=== PATIENT | female | born 1965 | race Hispanic/Latino ===

== ENCOUNTER → 2017-10-18 | Outpatient (CLI) | payer OTHER ==
--- NOTE | 2017-10-18 15:43 | Diagnostic Imaging Report ---
#[id number] - [id number] #BILATERAL FIRST EVER DIGITAL SCREENING MAMMOGRAM WITH CAD: 10/18/2017 CLINICAL: Routine screening. Baseline examination. No prior exams were available for comparison. Current study contains 8 films. There are scattered fibroglandular elements in both breasts. Current study was also evaluated with a Computer Aided Detection (CAD) system. There are benign calcifications in both breasts. No significant masses, calcifications, or other findings are seen in either breast. IMPRESSION: BENIGN There is no mammographic evidence of malignancy. A 1 year screening mammogram is recommended. The patient will be notified by letter of the results. Hugo Cumberland [place] Jr. Stephanie song/db:10/18/2017 14:10:35 [employer] Supervisor: Gladys GLOVER)(Berna), [facility] letter sent: Normal Exam Mammogram BI-RADS: 2 Benign
== END ==
LOC: MAMMO 09:21
PROVIDERS: ATTEND Family Medicine
DX: Z12.31 Encounter for screening mammogram for malignant neoplasm of breast (principal)
CPT/HCPCS: 77067

== ENCOUNTER → 2020-06-21 | Outpatient (CLI) | payer BC | LOC: MAMMO 08:55 | PROVIDERS: ATTEND Family Medicine | DX: Z12.31 Encounter for screening mammogram for malignant neoplasm of breast (principal) | CPT/HCPCS: 77067 ==

== ENCOUNTER 2024-11-23 10:17 | Inpatient (IN) | payer BC ==
[~2024-11-23] VITALS: Ht 152.4 cm; Wt 116.1 kg
[~2024-11-23 10:17] MED LIST: ACETAMINOPHEN500 MG PO; IBUPROFEN200 MG PO; ULTRAM 50MG50 MG PO
[2024-11-23 13:23] LABS: BASOPHILS % 0.6 % (0.0-1.0); EOSINOPHILS % 1.5 % (0.0-6.0); LYMPHOCYTES % 30.1 % (18.0-39.1); MONOCYTES % 7.1 % (4.4-11.3); NEUTROPHILS % 60.4 % (38.7-80.0); RED CELL DISTRIBUTION WIDTH 12.9 % (11.7-14.4)
[2024-11-23 13:33] LABS: LEUKOCYTE ESTERASE ,URINE NEGATIVE (NEGATIVE); PROTEIN,URINE DIPSTICK NEGATIVE (NEGATIVE); URINE UROBILINOGEN 0.2 mg/dL (0.2 - 1)
[2024-11-23 13:37] LABS: EPITHELIAL CELLS,URINE FEW /LPF; WBC,URINE (MAN) 0-5 /HPF (0-5)
[2024-11-23 13:38] LABS: EST GLOMERULAR FILTRATION RATE 86.0 ML/MIN (>=60)
[2024-11-23] MEDS ORDERED: IOPAMIDOL 370 MG/ML 100 ML INFUS..BTL INJ ONE (13:42)
[2024-11-23 13:58] LABS: INR 0.95
[2024-11-23 14:53] VITALS: PULSE 68; RESP 16; TEMP 98.6
[2024-11-23] MEDS: SODIUM CHLORIDE 0.9% 1000ML 1,000 ML IV STA (15:03)
[2024-11-23] MEDS ORDERED: ONDANSETRON HCL INJ 2MG/ML 2ML 2 MG/ML VIAL IV PRN (15:30)
[2024-11-23] MEDS: ASPIRIN 81 MG CHEW TAB PO ONE (15:30)
[2024-11-23 17:45] VITALS: BP 135/75; PULSE 66; RESP 20; TEMP 98.3; O2SAT 100
[2024-11-23] MEDS ORDERED: PIOGLITAZONE HC45 MG PO (18:03)
[2024-11-23] MEDS ORDERED: ROSUVASTATIN CA10 MG (18:03)
[2024-11-23] MEDS ORDERED: MELOXICAM15 MG (18:03)
[2024-11-23] MEDS ORDERED: JARDIANCE10 MG (18:03)
[2024-11-23] MEDS ORDERED: METFORMIN HCL500 M2 PO (18:03)
[2024-11-23] MEDS: SODIUM CHLORIDE 0.9% 1000ML 1,000 ML IV SCH (18:11)
[2024-11-23 20:00] VITALS: BP 138/87; PULSE 62; RESP 18; TEMP 98.2; O2SAT 98
[2024-11-23 21:00] VITALS: BP 138/87; PULSE 62; RESP 18; TEMP 98.2; O2SAT 98
[2024-11-24] VITALS (7 sets, daily range): BP systolic 121–137; BP diastolic 70–81; PULSE 59–67; RESP 18–20; TEMP 97.7–99.3; O2SAT 99–100
[2024-11-24 07:12] LABS: BASOPHILS % 0.8 % (0.0-1.0); EOSINOPHILS % 2.6 % (0.0-6.0); LYMPHOCYTES % 31.0 % (18.0-39.1); MONOCYTES % 8.5 % (4.4-11.3); NEUTROPHILS % 56.8 % (38.7-80.0); RED CELL DISTRIBUTION WIDTH 12.8 % (11.7-14.4)
[2024-11-24 07:41] LABS: CHOL/HDL RATIO 4.1 (3.0-3.6); EST GLOMERULAR FILTRATION RATE 100.0 ML/MIN (>=60); LDL CHOLESTEROL 39.0 MG/DL (60-130)
[2024-11-24] MEDS: ASPIRIN 81 MG ENTERIC COATED PO SCH (08:05)
[2024-11-24] MEDS ORDERED: DEXTROSE 50% SYRINGE 50 ML IV PRN (20:15)
[2024-11-24] MEDS: INSULIN LISPRO 100 UNIT/1 ML 3ML VIAL SQ SCH (20:48)
[2024-11-24] MEDS: CLONAZEPAM 1 MG TAB PO PRN (23:48)
[2024-11-25] VITALS (7 sets, daily range): BP systolic 123–145; BP diastolic 73–91; PULSE 60–68; RESP 18–20; TEMP 97.7–98.7; O2SAT 98–99
[2024-11-25 07:50] LABS: BASOPHILS % 0.9 % (0.0-1.0); EOSINOPHILS % 3.0 % (0.0-6.0); LYMPHOCYTES % 36.2 % (18.0-39.1); MONOCYTES % 7.9 % (4.4-11.3); NEUTROPHILS % 51.5 % (38.7-80.0); RED CELL DISTRIBUTION WIDTH 12.7 % (11.7-14.4)
[2024-11-25 07:59] LABS: EST GLOMERULAR FILTRATION RATE 99.0 ML/MIN (>=60)
[2024-11-25] MEDS: CLOPIDOGREL BISULFATE 75 MG TAB PO SCH (08:40)
[2024-11-26 08:09] VITALS: BP 104/54; PULSE 58; RESP 18; TEMP 97.6; O2SAT 98
[2024-11-26 08:38] VITALS: BP 104/54; PULSE 58; RESP 18; TEMP 97.6; O2SAT 98
[2024-11-26 12:00] VITALS: BP 112/68; PULSE 56; RESP 18; TEMP 97.8; O2SAT 98
[2024-11-26] MEDS: TRAMADOL HCL 50 MG TAB PO ONE (15:44)
[2024-11-26 16:25] VITALS: BP 125/62; PULSE 62; RESP 18; TEMP 98.2; O2SAT 98
== END 2024-11-26 19:30 | disposition other institution (70) | DRG 65 ==
LOC: ER 11:45 → ERHOLD 15:35 → MED/SURG3 17:37
PROVIDERS: ADMIT Internal Medicine; ATTEND Internal Medicine
DX: I63.9 Cerebral infarction, unspecified (principal); G81.94 Hemiplegia, unspecified affecting left nondominant side; N39.0 Urinary tract infection, site not specified; Z68.43 Body mass index [BMI] 50.0-59.9, adult; R27.0 Ataxia, unspecified; R53.1 Weakness; R32 Unspecified urinary incontinence; I10 Essential (primary) hypertension; R29.810 Facial weakness; E11.65 Type 2 diabetes mellitus with hyperglycemia; E66.01 Morbid (severe) obesity due to excess calories; E78.00 Pure hypercholesterolemia, unspecified; R13.10 Dysphagia, unspecified; M17.0 Bilateral primary osteoarthritis of knee; I67.82 Cerebral ischemia
CPT/HCPCS: 36415; 70450; 70496; 70498; 70551; 71045; 80048; 80053; 80061; 81001; 82550; 82948; 83036; 83735; 84484; 85025; 85610; 85730; 87086; 87186; 93005; 93306; 93971; 99284; J0696; J7030; Q9967